=== PATIENT | female | born 1980 | race Asian ===

== ENCOUNTER 2020-12-28 13:43 | Outpatient (CLI) | payer BC | END 2020-12-28 13:44 | disposition home or self-care (01) | LOC: BICULT 13:43 | PROVIDERS: ATTEND Internal Medicine | DX: M45.6 Ankylosing spondylitis lumbar region (principal); R10.30 Lower abdominal pain, unspecified; Z87.42 Personal history of other diseases of the female genital tract; N83.201 Unspecified ovarian cyst, right side | CPT/HCPCS: 72100; 76856 ==